=== PATIENT | male | born 1975 | race Caucasian/White ===

== ENCOUNTER 2024-05-11 15:40 | Emergency (ER) | payer OTHER ==
[2024-05-11 15:48] VITALS: BP 111/75; PULSE 74; RESP 20; TEMP 97.6; BMI 22.3
[2024-05-11] MEDS ORDERED: IBUPROFEN 400 MG TABLET (FP) PO ONE (16:32)
[2024-05-11] MEDS ORDERED: LIDOCAINE 4% PATCH TP ONE (16:32)
[2024-05-11] MEDS: IBUPROFEN 400 MG TABLET (FP) PO ONE (16:44)
[2024-05-11] MEDS: LIDOCAINE 5% TOPICAL PATCH TP ONE (16:44)
[2024-05-11] MEDS ORDERED: CycloBENZAprine HCL 10 MG TABLET (FP) ONE (16:49)
[2024-05-11] MEDS: CycloBENZAprine HCL 10 MG TABLET (FP) PO ONE (16:51)
[2024-05-11] MEDS ORDERED: ACETAMINOPHEN INJECTION 100 ML ONE (18:37)
[2024-05-11 18:51] LABS: ABSOLUTE IMMATURE GRANULOCYTES 0.02 x10^3/uL (0.0-0.031); BASOPHILS # 0.03 x10^3/uL (0.01-0.08); EOSINOPHIL % 6.3 % (0.8-7.0); EOSINOPHILS # 0.46 x10^3/uL (0.04-0.54); HEMATOCRIT 40.1 % (40.1-51.0); MCHC 34.9 g/dl (32.3-36.5); MEAN PLT VOLUME 11.1 fl (9.4-12.4); MONOCYTE # 0.59 x10^3/uL (0.30-0.82); MONOCYTE % 8.1 % (5.3-12.2); PLATELET COUNT # 178 x10^3/uL (163-337); RDW 13.5 % (12.1-15.9)
[2024-05-11] MEDS: ACETAMINOPHEN 1000 MG/100 ML BAG IVPB ONE (18:51)
[2024-05-11] MEDS ORDERED: oxyCODONE HCL 5 MG TABLET ONE (19:11)
[2024-05-11] MEDS: oxyCODONE HCL 5 MG TABLET PO ONE (19:17)
[2024-05-11 19:20] LABS: POTASSIUM 3.9 mmol/L (3.5-5.1)
[2024-05-11 19:23] LABS: CALCIUM 9.4 mg/dL (8.5-10.1)
[2024-05-11 19:24] LABS: ALBUMIN 4.1 g/dl (3.4-5.0); BLOOD UREA NITROGEN 15.4 mg/dL (7-18)
[2024-05-11 19:27] LABS: CREATININE 0.8 mg/dL (0.55-1.3)
[2024-05-11 19:29] LABS: BILIRUBIN,TOTAL 0.6 mg/dL (0.2-1); TOT PROT 7.1 g/dl (6.4-8.2)
[2024-05-11] MEDS ORDERED: LIDOCAINE PATCH REMOVAL MC SCH (22:00)
== END 2024-05-11 20:33 | disposition home or self-care (01) ==
LOC: JER 15:40
PROC: 3E033NZ Introduction of Analgesics, Hypnotics, Sedatives into Peripheral Vein, Percutaneous Approach (ICD-10-PCS; principal; 2024-05-11)
DX: M25.552 Pain in left hip (principal); W01.198A Fall on same level from slipping, tripping and stumbling with subsequent striking against other object, initial encounter
CPT/HCPCS: 36415; 72170-TC-FY; 80053; 85025; 99284-25; J0131